=== PATIENT | male | born 2000 | race Two or more races ===

== ENCOUNTER 2021-06-20 19:06 | Emergency (ER) | payer OTHER ==
[~2021-06-20] VITALS: Ht 172.7 cm; Wt 76.5 kg
[2021-06-20 20:39] VITALS: BP 131/60
== END 2021-06-20 20:44 | disposition home or self-care (01) ==
LOC: M ED 19:06
DX: Z20.2 Contact with and (suspected) exposure to infections with a predominantly sexual mode of transmission (principal); Z71.1 Person with feared health complaint in whom no diagnosis is made

== ENCOUNTER 2023-05-26 10:27 | Emergency (ER) | payer OTHER ==
[~2023-05-26] VITALS: Ht 170.2 cm; Wt 75.9 kg
[2023-05-26 12:47] VITALS: BP 149/68; TEMP 98.5; O2SAT 100
== END 2023-05-26 12:51 | disposition home or self-care (01) ==
LOC: M ED 10:27
DX: M62.831 Muscle spasm of calf (principal)

== ENCOUNTER → 2023-07-15 | Outpatient (CLI) | payer OTHER | LOC: M RAD 17:38 | PROVIDERS: ATTEND Orthopaedic Surgery | DX: S76.111A Strain of right quadriceps muscle, fascia and tendon, initial encounter (principal); M79.89 Other specified soft tissue disorders; S83.8X1A Sprain of other specified parts of right knee, initial encounter; X58.XXXA Exposure to other specified factors, initial encounter; Y92.9 Unspecified place or not applicable; Y93.9 Activity, unspecified; Y99.9 Unspecified external cause status ==